=== PATIENT | female | born 1985 | race Caucasian/White ===

== ENCOUNTER 2017-07-14 12:48 | Emergency (ER) | END 2017-07-14 16:37 | disposition home or self-care (01) ==

== ENCOUNTER 2017-11-09 13:39 | Emergency (ER) | END 2017-11-09 15:36 | disposition home or self-care (01) ==

== ENCOUNTER 2017-12-02 10:29 | Emergency (ER) | END 2017-12-03 07:39 | disposition left against medical advice (07) ==

== ENCOUNTER 2018-07-22 04:35 | Emergency (ER) | payer SELFPAY ==
[~2018-07-22] VITALS: Wt 61.9 kg
[~2018-07-22 04:35] MED LIST: CEPH-443 PO; DOCU-144 PO; HYDR-4011 PO; IBUP-1561 PO; IBUP800T48 PO; SULF1TAB31 PO
[2018-07-22 04:46] VITALS: BP 131/80; PULSE 79; RESP 18
== END 2018-07-22 05:26 | disposition left against medical advice (07) ==
LOC: FTE 04:35
DX: Z53.21 Procedure and treatment not carried out due to patient leaving prior to being seen by health care provider (principal)